=== PATIENT | male | born 1980 ===

== ENCOUNTER 2024-06-12 10:34 | Outpatient (REF) | payer SELFPAY ==
--- NOTE | ~2024-06-12 | XR_ITS ---
EXAMINATION: XR RIGHT HAND CLINICAL INFORMATION: Pain in right hand M79.641. COMPARISON: X-ray dated June 12, 2024. TECHNIQUE: PA, lateral, and oblique views of the right hand. FINDINGS: Transversely oriented cortical disruption distal diaphysis of the fifth metacarpal resulting in volar angulation of the distal fragment. No callus formation. Carpal bones are intact. Distal radius and ulna are intact. Phalanges are intact. The metacarpals from the 1st-4th are intact. XR/XR hand RT min 3V IMPRESSION: Acute subacute fracture distal fifth metacarpal with volar angulation. Electronically signed by: Erasmo Miranda MD 06/20/2024 08:32 AM EST
== END 2024-06-12 10:35 | disposition home or self-care (01) ==
LOC: HO.HOSX 10:34
PROVIDERS: Visit Provider Physician Assistant
DX: S62.336A Displaced fracture of neck of fifth metacarpal bone, right hand, initial encounter for closed fracture (principal)
CPT/HCPCS: 26600; 73130; 99202

== ENCOUNTER 2024-06-12 12:55 | Outpatient (AMB) | payer SELFPAY ==
--- NOTE | 2024-06-12 13:09 | A.OFFVIS_ITS ---
Vital Signs 06/12/24 13:13 Height 5 ft 10 in Weight 165 lb BMI 23.7 Intake Visit Reasons: FC- RT little finger phalanx fx DOI 06/04/24 Intake Note: Gabriel a 44 year old right hand dominant male who presents today for a new patient evaluation of right small finger, DOI 06/04/24. Patient reports he was frustrated and had punched a wall. He presented to [facility] the following day, x-rays were taken, he was placed in a brace and referred to orthopedics. Currently his pain is located at his 5th MCP dorsal and volar aspect of hand. Finds relief with ibuprofen at night. Numbness and tingling with brace were however with hand movement this subsides. Allergies No Known Allergies Allergy (Verified 06/12/24 13:17) Medication List - Last Reconciled 06/12/24 by Jay Smith PA-C No Known Home Meds HPI HPI FC- RT little finger phalanx fx DOI 06/04/24: Details: 44 yo male presents to the office today for an injury he sustained to his right small finger o 06/04/24 after punching a wall. He states he was seen at the urgent care the following day, xrays obtained and he was placed in a velcro splint and referred to our office for ortho eval. 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 Prior to [facility] he lived in [place]. Worked as a persaud. [facility] Social History (Updated 06/12/24 @ 13:18 by CHRISTOPHER Horvath) Patient Tobacco Use Status: Current everyday Tobacco user Current occupational status: unemployed Review of Systems Const All systems reviewed & are unremarkable except as noted in HPI and below Physical Exam Vital Signs: BMI result Body Mass Index 23.7 Const General: cooperative and no acute distress Orientation/consciousness: patient oriented x3 Resp Effort & Inspection: normal respiratory effort and able to speak in complete sentences Cardio Peripheral pulses: Peripheral pulses 2+ throughout Neuro General: patient oriented x3 Extrem Other: Right hand is normal to inspection. No significant bony prominence over the 5th metacarpal head with mild tenderness to palpation. No significant scissoring or crossing of the fingers. He is neurovascularly intact. Office Procedures AMB Fracture Care Fracture Billing Code: Fracture Billing Code Results Reviewed Results Reviewed: X-rays of the right hand obtained in the office today show a minimally displaced 5th metacarpal neck fracture. Assessment & Plan Assessment & Plan (1) Zuleyma's metacarpal fracture, neck, closed: Code(s): S62.339A - Displaced fracture of neck of unspecified metacarpal bone, initial encounter for closed fracture Category: Medical Qualifiers: Encounter type: initial encounter Qualified Code(s): S62.339A - Displaced fracture of neck of unspecified metacarpal bone, initial encounter for closed fracture Plan: Patient was placed in a volar wrist splint with brianda taping of the ring to small finger. Should work on range of motion of the PIP and DIPJ of the ring and small finger. He can perform full use of the 1st 2nd and 3rd digit. No heavy lifting more than a cell phone with the right hand. He should wear the brace at all times and removed for hygiene. I did explain that with the amount of displacement noted on x-ray he may notice an absence of bony prominence around the MCP joint. May also notice bony prominence along the palmar aspect of the hand when making a fist. This should not impact his ability to perform activities. I would like to see him back in 4 weeks with x-rays, sooner if needed. Orders: Orders XR hand RT min 3V Today M79.641 - Pain in right hand Coding Level of Care Code New Pt Level 4 (21702) Complex EM visit Add On G2211 Diagnoses Closed boxer's fracture, initial encounter S62.339A Encounter type: initial encounter CPT Codes Fracture Care - Fracture Billing Code: Fracture Billing Code ([id number])
[2024-06-12 13:13] VITALS: BMI 23.7
== END 2024-06-12 13:52 | disposition home or self-care (01) ==
PROVIDERS: Visit Provider Physician Assistant
DX: S62.336A Displaced fracture of neck of fifth metacarpal bone, right hand, initial encounter for closed fracture (principal)
CPT/HCPCS: 26600; 99203; G2211

== ENCOUNTER → 2024-06-12 12:57 | Outpatient (BNV) | payer SELFPAY | PROVIDERS: Visit Provider Radiology Diagnostic Radiology | DX: S62.326A Displaced fracture of shaft of fifth metacarpal bone, right hand, initial encounter for closed fracture (principal) | CPT/HCPCS: 73130 ==